=== PATIENT | female | born 1960 ===

== ENCOUNTER 2021-08-04 05:58 | Day surgery (SDC) | payer OTHER ==
[~2021-08-04 05:58] MED LIST: AMBIEN PO; COZAAR50 MG PO; TOPROL XL50 M1 PO; VASOF PO
[2021-08-04] MEDS ORDERED: PEPCID20 MG PO (09:25)
[2021-08-04] MEDS ORDERED: SURFAK240 M1 PO (09:25)
[2021-08-04] MEDS ORDERED: PERCOCET 5-3251 EACH PO (09:25)
[2021-08-04] MEDS ORDERED: MIRALAX17 GM PO (09:25)
== END 2021-08-04 12:45 | disposition home or self-care (01) ==
LOC: CIR.AMB 05:58
PROVIDERS: ATTEND Surgery
DX: K80.10 Calculus of gallbladder with chronic cholecystitis without obstruction (principal)